=== PATIENT | male | born 1955 | race Caucasian/White ===

== ENCOUNTER 2020-07-16 15:38 | Observation (INO) | payer BC, SELFPAY ==
--- NOTE | 2020-07-12 09:50 | EKG12_ITS ---
Test Reason : PRE OP Blood Pressure : / mmHG Vent. Rate : 109 BPM Atrial Rate : 109 BPM P-R Int : 206 ms QRS Dur : 104 ms QT Int : 328 ms P-R-T Axes : 048 -09 008 degrees QTc Int : 441 ms Sinus tachycardia Inferior infarct , age undetermined Abnormal ECG Confirmed by FLORIAN GOEZT, PRISCILA ([id number]), editor managing newspaper KEVIN RAMON ([id number]) on 07/14/2020 7:57:52 AM Referred By: Luciano Montemayor Confirmed By:PRISCILA DU MD
[2020-07-12 10:42] LABS: Hematocrit 44.8 % (40-54); Hemoglobin 14.9 g/dL (13.0-16.5); Mean Corp Hgb Conc 33.3 g/dL (32-36); Mean Corpuscular Volume 84.1 fL (80-94); Mean Platelet Vol. 9.9 fl (6.2-12.0); Platelet Count 204 K/mm3 (150-450); RBC Distribution Width CV 13.6 % (11.6-14.6); RBC Distribution Width SD 41.7 fl (35.1-43.9); Red Blood Count 5.33 M/mm3 (4.6-6.2); White Blood Count 4.8 K/mm3 (4.4-11.0)
[2020-07-12 11:07] LABS: Anion Gap 4 (5-15); BUN 17 mg/dL (7-18); BUN/Creat Ratio 17.1 RATIO (10-20); Calcium,Total 9.7 mg/dL (8.5-10.1); Chloride 104 mmol/L (98-107); Creatinine, Serum 0.99 mg/dL (0.70-1.30); EST Glomerular Filtration Rate 80 mL/min (>60); Est Glom Filt Rate - Afr Amer 97 mL/min (>60); Glucose 223 mg/dL (74-106); Potassium 4.2 mmol/L (3.5-5.1); Sodium Level 136 mmol/L (136-145)
[2020-07-12 11:21] LABS: Thyroid Stim Hormone (TSH) 1.99 uIU/mL (0.358-3.74)
[2020-07-16] VITALS (27 sets, daily range): BP systolic 94–148; BP diastolic 49–94; PULSE 39–100; RESP 16–22; TEMP 36.1–36.7; O2SAT 93–99; BMI 34.4; BMI 34.5
--- NOTE | 2020-07-16 | THYROID_PTH ---
PATIENT: SHANNAN OWENS LOC: [facility] U#:[id number] AGE/SX: 65/M ROOM: [facility]07 RE07/16/[address]: Dr. Luciano Montemayor MD : [id number] BED: 1 DIS: 07/17/2020 SPEC #: [id number] RECD: 07/16/20 14:51 STATUS: ELLEN REQ #: [id number] JAZMYN: 07/16/20 00:[address]: Luciano Montemayor DEPT: SURGICAL PATHOLOGY RECD BY: Medhat Junior ENTERED: 07/19/20 06:00 SP TYPE: THYROID OTHR DR: Dr. Han Garcia DO Tissues: A - Thyroid gland, NOS B - Lymph node of neck, NOS Procedures: Decalcification bone/plaque Frozen Section (charge) Frozen Section Add'l ([facility]) Surgery Specimen Level IV Surgery Specimen Level V HEADER OPERATION: Thyroid lobectomy, frozen section PRE-OP DIAGNOSIS: Thyroid nodule, disorder of larynx TISSUE SUBMITTED: A - Right thyroid with suspicious nodule, FS at 1449, B - Lymph node right thyroid, FX at 1513 FROZEN SECTION DIAGNOSIS A. Right thyroid lobe, lobectomy: Cellular follicular nodule. B. Lymph node, biopsy: Thyroid tissue. SPENCER:vaishnavi 07/16/20 MICROSCOPIC DIAGNOSIS A. 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 Multinodular goiter B. Lymph node right thyroid: Benign thyroid tissue. SPENCER:vaishnavi 07/20/2020 COMMENT Case has been reviewed in consultation with Dr. Jacobs who concurs with the above diagnosis. IDC:AM MICROSCOPIC DESCRIPTION Slides are reviewed. GROSS DESCRIPTION A - Received fresh for frozen section diagnosis labeled with the patient's name is a specimen designated right thyroid. The specimen consists of a thyroid lobectomy specimen partially disrupted, weighing 9.6 gm and measuring 4 x 4 x 2 cm. The specimen is inked as follows: anterior - blue, posterior - black. The specimen appears to be partially disrupted exposing a nodule. The nodule is present in the middle to lower portion of the lobe measuring 3 x 2.5 x 1.5 cm. Section of the nodule reveal blanca solid cut surfaces with focal central area of fibrosis, cystic changes and calcification. Two frozen sections are done from the nodule. The entire specimen is submitted in nine cassettes as follows: 1 - frozen section, thyroid nodule, 2 - frozen section, thyroid nodule, most inferior portion of the thyroid lobe, 39??rest of the specimen (cassettes 6-9 are submitted after decalcification). B - Received fresh for frozen section diagnosis labeled with the patient's name is a specimen designated lymph node. The specimen consists of a piece of blanca-white tissue measuring 0.6 x 0.5 x 0.1 cm. The entire specimen is submitted for frozen section diagnosis in one cassette. / SJ:vaishnavi 07/16/20 TC:5 CPT: 56780, 56025, 02870 x2, 45120, 06033
[2020-07-16] MEDS: Lactated Ringers 1,000 ML 100 ML IV ×3 (12:32→19:52)
[2020-07-16 12:41] LABS: Bedside Glucose 223 mg/dL (70-110)
[2020-07-16] MEDS: Metoprolol Tartrate 25 MG Tablet PO (12:54)
[2020-07-16] MEDS: Lidocaine 1% /Epi 1:100 (20ml) 20 ML Vial (13:29)
--- NOTE | 2020-07-16 15:24 | EKG12_ITS ---
Test Reason : Blood Pressure : / mmHG Vent. Rate : 040 BPM Atrial Rate : 080 BPM P-R Int : 216 ms QRS Dur : 102 ms QT Int : 474 ms P-R-T Axes : 044 -04 109 degrees QTc Int : 386 ms Sinus rhythm with 2:1 A-V Block Inferior infarct , age undetermined Abnormal ECG Confirmed by JESUS GOETZ, MARIO ([id number]), brands editor KEVIN RAMON ([id number]) on 07/23/2020 12:59:17 PM Referred By: Luciano Montemayor Confirmed By:MARIO LEE MD
--- NOTE | 2020-07-16 15:27 | PCM.OPRPT ---
Problem List (1) Thyroid nodule Status: Acute Report of Operation Date of Procedure: 07/16/20 Pre-Operative Diagnosis: Suspicious right thyroid nodule Post-Operative Diagnosis: Same Surgery/Procedure Performed:: Right hemithyroidectomy with laryngeal nerve monitoring Description of Surgical Findings:: Gordy is a 65-year-old male who presents with a suspicious right thyroid nodule. Fine-needle biopsy had been performed at outside institution and was nondiagnostic and excision for further evaluation of possible malignancy was advised for definitive evaluation. The risks, alternatives, potential complications, and benefits were discussed at length and any questions answered to the patient and/or caregiver's satisfaction. Witnessed informed consent was obtained in the office, and the patient and/or caregiver was agreeable to proceed. Procedure went as follows: The patient was identified in the preoperative holding and brought to the operating room, placed under general anesthesia and intubated with a neuromonitoring tube. The grounding electrodes were then placed on the chest and confirmed to be operational in accordance with the hearing aid technician's directions to allow for recurrent laryngeal nerve monitoring. The neck was then prepped and draped in usual sterile fashion and the planned skin incision was marked 2 finger breadths above the sternal notch with a marking pen. The incisional line was then injected with 1% lidocaine with 100,000 epinephrine for a total of 9 mL. After allowing for vasoconstriction, a 15 blade scalpel was used to make an incision 8 cm in length through the skin and subcutaneous tissues and platysma. A subplatysmal flap was then elevated superiorly and inferiorly to allow for placement of the self-retaining thyroid retractor. The strap muscles were then divided in the midline and beginning on the left side the thyroid lobe dissected in a sub-capsular fashion. The inferior, middle, and superior thyroid vessels were individually clamped and ligated with a combination of 3-0 silk sutures and vascular clips. The parathyroid glands were identified along the inferior vascular pedicle and preserved. The recurrent laryngeal nerve was also identified and followed to its nerve entry point and the thyroid gland dissected free of its attachments to the trachea at Broyle's ligament. This was then transected at the isthmus and sent for pathologic evaluation. This revealed a cellular follicular neoplasm however malignancy was not identified. The wound bed was then irrigated saline solution and examined for sites of bleeding. No significant bleeding was encountered and a #7 flat drains were then placed into the tracheoesophageal groove and brought out through a stab incision in the neck and secured with 3-0 silk suture. The strap muscles were then re-approximated in the midline with a running 3-0 Vicryl suture followed by interrupted 3-0 Vicryl sutures to close the platysma and subcutaneous tissues. A 5-0 Monocryl was then used to close the skin followed by Steri-Strips completing the procedure. The patient was then returned to anesthesia, revived and extubated having tolerated the procedure well. Type of Anesthesia:: General Anesthesiologist: Patrick Morales Special Medications: none Specimen's removed: right thyroid lobe Drains: #7 flat PUMA drain Estimated Blood Loss (mL): 25 mL Fluids Replaced: 1000 mL Grafts/Implants Used: none - Complications none - Admit VTE Documentation VTE Present on Admission: No VTE Mechan Device Prophylaxis: SCD's VTE Pharm Prophylaxis ordered?: No
--- NOTE | 2020-07-16 15:37 | DCINST_ITS ---
- Discharge Diagnoses Current Active Problems: Current Active and Chronic Problems Thyroid nodule (Acute) You will use the following diet at home:: No restrictions Discharge Activity: Return to Normal Activity, May not drive while taking narcotic pain medications. Call your doctor if your incision/area has: Sudden Increased Bleeding, Foul Smelling Discharge, Swelling at the incision site Call your doctor if you observe: Fever of 101 or Higher, Uncontrolled pain Allergies/Adverse Reactions: Allergies No Known Allergies Allergy (Verified 07/09/20 11:47) Medications to take at Discharge Aspirin [Aspirin EC] 162 mg PO DAILY 07/09/20 Atorvastatin Calcium [Lipitor] 40 mg PO DAILY 07/09/20 Clopidogrel Bisulfate [Plavix] 75 mg PO DAILY 07/09/20 Famotidine [Pepcid] 40 mg PO DAILY 07/09/20 Losartan Potassium [Cozaar] 100 mg PO DAILY 07/09/20 Metoprolol Tartrate [Lopressor (Beta Rosaura)] 25 mg PO DAILY 07/09/20 RX: Ciprofloxacin HCl 750 mg PO BID 07/09/20 RX: Folic Acid 1 mg PO DAILY@0800 07/09/20 Primary Care Physician: Han Garcia DO [Primary Care Provider] - Test Results: Test results from this visit will be discussed in further detail at your follow- up appointment, if applicable. Please Follow Up With: Luciano Montemayor MD When: 2 weeks
--- NOTE | 2020-07-16 16:37 | SUR.PHASEI ---
1609 PT HAS C/O NAUSEA, PT PRESENTS WITH DIAPHORESIS, MOTORCYCLE TESTER NOTES SECOND DEGREE HB, RATE 40, THEN TO 39. ZOFRAN 4MG IV GIVEN, O2 3 L PER NC APPLIED. Oswaldo STABLE 116/67. 1612 DR PAYTON FRANZ CALLED . EKG ORDERED, ATROPINE 0.4MG GIVEN IN SEPERATE DOSES.BS 242. 1615 PT STATES NAUSEA IS DECREASED , MOTORCYCLE TESTER NOTES , SB 41, WITH 2ND DEGREE AV BLOCK. WILL MONITOR BP , Q5 MIN PER ANESTHESIA. 1640 DR FRANZ AT THE BESIDE, MOTORCYCLE TESTER NOTES 49, PT DENIES ANY NAUSEA.
--- NOTE | 2020-07-16 17:12 | SUR.PHASEI ---
1700 DR CROSS AT BEDSIDE, CARDIAC MONTIOR NOTES 2ND DECREEE HB RATE 55. EKG ORDERED. DR FRANZ CONTACTING HOSPITALIST.
--- NOTE | 2020-07-16 17:13 | EKG12_ITS ---
Test Reason : Blood Pressure : / mmHG Vent. Rate : 058 BPM Atrial Rate : 084 BPM P-R Int : 256 ms QRS Dur : 106 ms QT Int : 444 ms P-R-T Axes : 062 -05 101 degrees QTc Int : 435 ms Sinus rhythm with 2nd degree A-V block Mobitz-I Inferior infarct , age undetermined Abnormal ECG Confirmed by JESUS GOETZ, MARIO ([id number]), research editor JACQUELYN HDEZ ([id number]) on 07/22/2020 11:34:09 AM Referred By: Luciano Montemayor Confirmed By:MARIO LEE MD
--- NOTE | 2020-07-16 17:14 | PCM.CONS.GEN ---
Problem List (1) HTN (hypertension) Status: Chronic (2) HLD (hyperlipidemia) Status: Chronic (3) CAD (coronary artery disease) Status: Chronic (4) Mobitz II Status: Acute (5) Thyroid nodule Status: Chronic Reason for Consult Date of Consultation: 07/16/20 Reason for Consultation: Mobitz 2 postoperatively. History of Present Illness: The patient is a 65 year old M who underwent right hemithyroidectomy secondary to suspicious right thyroid nodule and subsequently developed second-degree heart block. Hospitalist and cardiology consulted. Patient evaluated in PACU. EKG consistent with second-degree block. Patient denies dizziness, lightheadedness, shortness of breath, chest pain. Resting comfortably in bed. Blood pressure stable. He denies history of arrhythmia/block. He has a cardiac history significant for CAD with multiple stents. He underwent stress test June 2020 which was negative for ischemia. He has a past medical history of CAD with history of stents, hypertension, hyperlipidemia. Past Medical History Past Medical History (Chronic Problems): Chronic Problems Thyroid nodule (Chronic) HTN (hypertension) (Chronic) HLD (hyperlipidemia) (Chronic) CAD (coronary artery disease) (Chronic) Allergies No Known Allergies Allergy (Verified 07/09/20 11:47) Home Medications: Ambulatory Orders Medication Instructions Recorded Aspirin [Aspirin EC] 162 mg PO DAILY 07/09/20 Atorvastatin Calcium [Lipitor] 40 mg PO DAILY 07/09/20 Ciprofloxacin HCl 750 mg PO BID 07/09/20 Clopidogrel Bisulfate [Plavix] 75 mg PO DAILY 07/09/20 Famotidine [Pepcid] 40 mg PO DAILY 07/09/20 Folic Acid 1 mg PO DAILY@0800 07/09/20 Losartan Potassium [Cozaar] 100 mg PO DAILY 07/09/20 Metoprolol Tartrate [Lopressor 25 mg PO DAILY 07/09/20 (Beta Rosaura)] Surgical History: - - Cardiac stents, right hemithyroidectomy Psychiatric History: No pertinent psych hx Lives: Spouse/ Significant Other Smoking Status: Never smoker Tobacco Use: Non-smoker Alcohol: None Drugs: None - *Family History Maternal History Items: - - Denies known maternal medical history including cardiac history. Paternal History Items: - - Denies known paternal medical history including cardiac history. Review of Systems Constitutional: Denies: Chills, Fever, Weight Change HEENT: Denies: Head Aches, Sinus Congestion, Sinus Drainage Cardiovascular: Denies: Chest Pain, Palpitations Respiratory: Denies: Cough, Shortness of breath at rest, Sputum production Gastrointestinal: Denies: Abdominal Pain, Nausea, Vomiting Genitourinary: Denies: Dysuria Musculoskeletal: Denies: Joint Pain, Joint Tenderness Skin: Reports: - - Postop dressing intact. Denies: Rash, Wounds Neurological: Denies: Numbness, Tingling, Focal weakness Psychiatric: Denies: Anxiety, Depression, Homicidal Ideations, Suicidal Ideations Hematologic/ Lymphatic: Denies: Easy Bruising, Easy Bleeding Patient Problems: Active and Suspected Problems Mobitz II (Acute) - Physical Exam Vitals/I&O's: Vital Signs Temp Pulse Resp BP Pulse Ox 97.5 F L 56 L 16 117/65 98 07/16/20 15:51 07/16/20 17:00 07/16/20 17:00 07/16/20 17:00 07/16/20 17:00 Oxygen Flow Rate (L/min) 3 Oxygen Delivery Method Nasal Cannula Weight: 239 lb 13.807 oz Body Mass Index (BMI) 34.4 General: Alert, Oriented x3, Cooperative HEENT: Atraumatic, PERRLA, EOMI, Normocephalic Neck: Supple, No JVD, Negative Carotid Bruits Lungs: Clear to auscultation, Normal air movement Cardiovascular: No murmurs, Bradycardic, - - 2nd degree type 1 Abdomen: Bowel Sounds Present, Soft, Non Tender, Non-Distended Extremities: No clubbing, No cyanosis, No edema, Capillary Refill Less than 3 Seconds Skin: No rashes, No breakdown Musculoskeletal: No Tenderness to Palpation of Joints or Extremities Neurological: Cranial nerves II-XII grossly intact, Neuro grossly intact Psych/Mental Status: Normal Affect, Appropriate Microbiology Past 72 Hours 07/15/20 09:25 Interface Orders SARS-CoV-2 Antigen (Rapid) - Final Laboratory Results 07/16/20 12:30: POC Glucose 223 H Current Medications Acetaminophen (Acetaminophen 500 Mg Tablet) 500 mg PO Q4H PRN PRN PRN Reason: Pain Score 1-5 Hydrocodone Bitart/Acetaminophen (Hydrocodone Bitartrate/Apap 5/325 Tablet) 1 tablet PO Q6H PRN PRN PRN Reason: Pain Score 6-10 Aspirin (Aspirin E.C. 81 Mg Tablet) 162 mg PO DAILY@0800 [facility] Atorvastatin Calcium (Atorvastatin Calcium 40 Mg Tablet) 40 mg PO DAILY@2200 [facility] Ciprofloxacin HCl (Ciprofloxacin 250 Mg Tablet) 750 mg PO BID [facility] Clopidogrel Bisulfate (Clopidogrel Bisulfate 75 Mg Tablet) 75 mg PO DAILY [facility] Famotidine (Famotidine 20 Mg Tablet) 40 mg PO DAILY [facility] Folic Acid (Folic Acid 1 Mg Tablet) 1 mg PO DAILY@0800 [facility] Lactated Ringer's () 1,000 mls @ 100 mls/hr IV .Q10H KAIN Last Admin: 07/16/20 12:32 Dose: 100 mls/hr Documented by: Losartan Potassium (Losartan Potassium 100 Mg Tablet) 100 mg PO DAILY [facility] Metoprolol Tartrate (Metoprolol Tartrate 25 Mg Tablet) 25 mg PO DAILY [facility] Ondansetron HCl (Ondansetron 4 Mg/2 Ml Vial) 4 mg IV Q4H PRN PRN PRN Reason: Nausea Assessment/Plan All Active Problems Mobitz II (Acute) 1. Second-degree AV block, occurred postoperatively-hold beta-rosaura. Appears rate is improving. Admit overnight for further monitoring. Cardiology consulted as well. 2. CAD with history of stents-recent stress test June 2020 without ischemia. Continue aspirin, statin, Plavix, metoprolol. 3. Hypertension-stable, continue losartan, Toprol. 4. Hyperlipidemia- continue statin. DVT prophylaxis- per primary service This patient was seen by SEAN Alvarez under the supervision of Dr. Haynes.
[2020-07-16 17:20] LABS: Bedside Glucose 242 mg/dL (70-110)
--- NOTE | 2020-07-16 17:27 | SUR.PHASEI ---
1720 DR PAYTON FRANZ SPOKE WITH DR KHAN, THEN DR LEE. PT TO BE ADMITTED TO ICU
--- NOTE | 2020-07-16 18:12 | ECHOD_ITS ---
Reason For Study: ARRHYTHMIA Procedure This was a 2D Doppler, Color Flow transthoracic echocardiogram. The study was technically difficult. Exam performed portable in ICU/CCU. Left Ventricle Normal LV size. Mild concentric left ventricular hypertrophy. Segmental dysfunction with preserved ejection fraction (see wall motion). The estimated ejection fraction is 55 %. Unable to assess diastolic dysfunction. Posterior-Basal: Hypokinetic. Infero-Basal: Akinetic. Mid-Posterior: Hypokinetic. Mid-Inferior: Hypokinetic. Inferior [place] : Hypokinetic. Right Ventricle Normal RV size. Normal systolic function. Atria The left atrium is mildly enlarged. Normal right atrium. No doppler evidence for ASD. Mitral Valve There is no mitral annular calcification. Mild diffuse mitral valve thickening. Trivial mitral valve insufficiency. Tricuspid Valve Normal tricuspid valve. Trivial tricuspid valve insufficiency. Right ventricular systolic pressure estimated to be 19 mmHg. Aortic Valve Trisinus/trileaflet aortic valve. Mild diffuse aortic valve thickening. Mild focal aortic valve calcification. Aortic sclerosis, no stenosis. Pulmonic Valve The pulmonic valve is not well visualized. Great Vessels Normal sized aortic root. Calcified aortic root. Pericardium/Pleural No pericardial effusion. MMode/2D Measurements & Calculations LVIDd: 5.3 cm IVSd: 1.4 cm Ao root diam: 3.9 cm LVIDs: 4.5 cm LVPWd: 1.3 cm RVDd: 4.5 cm FS: 14.9 % LAV(MOD-bp): 84.6 ml LVAd ap4: 38.5 cm2 SV(MOD-sp4): 75.4 ml LAV(MOD-bp) Indexed: 37.6 ml/m2 EDV(MOD-sp4): 149.8 ml LAV(MOD-sp2): 81.9 ml EDV(sp4-el): 149.2 ml LAV(MOD-sp4): 86.2 ml LVAs ap4: 24.3 cm2 ESV(MOD-sp4): 74.4 ml ESV(sp4-el): 75.6 ml EF(MOD-sp4): 50.3 % EF(sp4-el): 49.3 % SV(sp4-el): 73.6 ml LA A4 area: 24.7 cm2 LA dimension(2D): 4.6 cm RA A4 area: 19.2 cm2 Time Measurements MV dec time: 0.18 sec Doppler Measurements & Calculations MV E max naman: 138.8 cm/sec Ao V2 max: 138.3 cm/sec LV V1 max: 111.0 cm/sec Ao max P.7 mmHg LV V1 max P.9 mmHg PA V2 max: 98.0 cm/sec TR max naman: 202.1 cm/sec TR max P.3 mmHg ECHO/Echo Complete Interpretation Summary The study was technically difficult. Segmental dysfunction with preserved ejection fraction (see wall motion). The estimated ejection fraction is 55 %. Mild concentric left ventricular hypertrophy. The left atrium is mildly enlarged. Mild diffuse mitral valve thickening. Trivial mitral valve insufficiency. Trivial tricuspid valve insufficiency. Aortic sclerosis, no stenosis. Calcified aortic root. Right ventricular systolic pressure estimated to be 19 mmHg. Unable to assess diastolic dysfunction. Ordering Physician: Reece Nash Referring Physician: AJ LOPEZ Performed By: Kim Zimmerman, MEETA, RVT
--- NOTE | 2020-07-16 18:12 | CON.PCM_ITS ---
Problem List (1) AV block Status: Acute (2) CAD (coronary artery disease) Status: Chronic Qualifiers: Coronary Disease-Associated Artery/Lesion type: bypass graft [place] vs. transplanted heart: [place] heart Associated angina: without angina Qualified Code(s): I25.810 - Atherosclerosis of coronary artery bypass graft(s) without angina pectoris (3) S/P PTCA (percutaneous transluminal coronary angioplasty) Status: Chronic (4) S/P CABG (coronary artery bypass graft) Status: Chronic (5) Cardiomyopathy, ischemic Status: Chronic (6) HLD (hyperlipidemia) Status: Chronic (7) HTN (hypertension) Status: Chronic (8) Thyroid nodule Status: Chronic Reason for Consult Date of Consultation: 07/16/20 History of Present Illness: The patient is a 65 year [id number] white male with a history of hyperlipidemia, hypertension, CAD, status post PTCA/stent) 2002 to the RCA/PDA; 2003 to the PDA secondary to stent recoil; 2003 to the LAD; 2011 to the RCA secondary to inferior STEMI), status post CABG x4 (2011), ischemic cardiomyopathy, who now is status post thyroid surgery who is referred for evaluation of AV block with a recovery room ECG demonstrating sinus rhythm with 2-1 AV block with an inferior KS pattern of indeterminate age and a nonspecific T wave which status post IV atropine has subsequently demonstrated sinus rhythm with second-degree AV block Mobitz 1 with an inferior my pattern of indeterminate age. The patient follows with [facility] in [place], [place]. He has undergone a recent preoperative cardiovascular evaluation by his primary medical certification specialist, Dr. Mahesh Orourke with respect to his thyroid surgery. It appears he reviewed his case including a transthoracic echocardiogram from 06-24-2019. At that time per the report his LV function was reported as normal with an LVEF of 50 to 55%, the mitral valve annulus was mildly calcified, the mitral valve leaflets were mildly thickened, there was no significant stenosis/regurgitation, the aortic valve was mildly thickened, there was trivial TR and trivial ID. It appears the patient also underwent evaluation which included a breast nuclear imaging study performed on 06-29-2020. Per the report this was a pharmacologic stress nuclear imaging study. There was a moderate to large scar involving the inferior and inferolateral mckeon without significant key-infarct ischemia with an LVEF of 42% with a comment of no significant changes in perfusion compared to a prior study from 2019. The systolic function was reported as slightly better. The prior EF was reported at 37%. The patient proceeded with his thyroid surgery this day. It is reported based upon an elevated heart rate that the patient did receive during his surgical procedure esmolol 20 mg IV total. According to Dr. Morales of anesthesiology the patient did well through surgery without any significant fluctuations in his heart rate or blood pressure. In the recovery room the patient was noted to become bradycardic. An ECG was obtained. It appeared he had sinus rhythm with a 2-1 AV block pattern. The patient was treated with IV atropine and had precautionary external transcutaneous pacemaker pads placed but not activated. The patient's blood pressure remained stable. The patient was reported without any acute symptoms. A follow-up ECG subsequently demonstrated sinus rhythm with the appearance of second-degree AV block Mobitz 1. At the present time the patient appears to be resting supine. He denies any ongoing chest discomfort or difficulty breathing. He has not sensed any obvious change in his underlying rate or rhythm. He has had no history of near syncope or syncope. To the best of his knowledge she has never had to undergo any evaluation of his cardiac rate or rhythm in the past. [] Past Medical History Allergies/Adverse Reactions: Allergies No Known Allergies Allergy (Verified 07/09/20 11:47) Home Medications: Ambulatory Orders Medication Instructions Recorded Aspirin [Aspirin EC] 162 mg PO DAILY 07/09/20 Atorvastatin Calcium [Lipitor] 40 mg PO DAILY 07/09/20 Ciprofloxacin HCl 750 mg PO BID 07/09/20 Clopidogrel Bisulfate [Plavix] 75 mg PO DAILY 07/09/20 Famotidine [Pepcid] 40 mg PO DAILY 07/09/20 Folic Acid 1 mg PO DAILY@0800 07/09/20 Losartan Potassium [Cozaar] 100 mg PO DAILY 07/09/20 Metoprolol Tartrate [Lopressor 25 mg PO DAILY 07/09/20 (Beta Mike)] Past Medical History (Chronic Problems): Chronic Problems Thyroid nodule (Chronic) HTN (hypertension) (Chronic) HLD (hyperlipidemia) (Chronic) CAD (coronary artery disease) (Chronic) S/P PTCA (percutaneous transluminal coronary angioplasty) (Chronic) S/P CABG (coronary artery bypass graft) (Chronic) Cardiomyopathy, ischemic (Chronic) Surgical History: - - Cardiac stents, right hemithyroidectomy Psychiatric History: No pertinent psych hx - *Family History Maternal History Items: - - Denies known maternal medical history including cardiac history. Paternal History Items: - - Denies known paternal medical history including cardiac history. Lives: Spouse/ Significant Other Smoking Status: Never smoker Tobacco Use: Non-smoker Alcohol: None Drugs: None Review of Systems - Review of Systems General: Denies: Fever, Night Sweats, Fatigue Cardiovascular: Denies: Chest Discomfort, Shortness of Breath, Orthopnea, PND, Peripheral Edema, Palpitations, Lightheadedness, Dizziness, Near Syncope, Sy ncope Respiratory: Denies: Cough, Sputum Production, Hemoptysis Gastrointestinal: Denies: Hematemesis, Hematochezia, Melena Genitourinary: Denies: Dysuria, Hematuria Subjectve: This is a 65-year-old white male who appears to be resting comfortably at the moment in no acute distress. Objective: Vital Signs Temp Pulse Resp BP Pulse Ox 97.5 F L 65 16 126/89 H 99 07/16/20 15:51 07/16/20 18:00 07/16/20 18:00 07/16/20 18:00 07/16/20 18:00 Oxygen Flow Rate (L/min) 2 Oxygen Delivery Method Nasal Cannula Weight: 239 lb 13.807 oz Body Mass Index (BMI) 34.4 General: Awake, Alert, Oriented x 3, Cooperative, No Acute Distress, Obese HEENT: Atraumatic, Normocephalic, PERRL, EOMI, Sclera Non Icteric Neck: Supple, Good ROM, No JVD Lungs: Clear to auscultation Cardiovascular: Irregular Rhythm, Normal S1, Normal S2 Abdomen: Bowel Sounds Present, Soft Extremities: No edema Neurological: No Focal Motor or Sensory Deficit Psych/Mental Status: Appropriate Rhythm: Sinus rhythm; second-degree AV block Mobitz 1 EKG: As noted above ECHO: As noted above Stress Test: As noted above Assessment/Plan 1. AV block The patient has experienced post surgery in the recovery room findings com patible with underlying AV block initially with a sinus rhythm with a 2-1 AV block and subsequently, status post receiving IV atropine, a sinus rhythm with a second-degree AV block Mobitz 1. The patient has no history of cardiac conduction disorder that he is aware of. He does not recall undergoing any type of cardiac rhythm evaluation in the past. The patient does have an extensive history of underlying CAD requiring multiple PCI procedures and subsequently CABG. He also has findings of an underlying ischemic mediated cardiomyopathy but has not had overt CHF or pulmonary edema. The patient has been on medical therapy in the past with beta-mike therapy with metoprolol XL at 25 mg p.o. daily. At the moment the patient appears to be symptomatically and hemodynamically stable. He is going to be placed in the ICU to be monitored for any other concerning cardiac dysrhythmias/conduction related issues that would require additional evaluation and care. During this time his beta-mike will be placed on hold. Additional rate limiting medication should be avoided. Depending upon his clinical course he may or may not need additional ongoing evaluation of his underlying rate and rhythm. 2. CAD status post PCI status post CABG As noted above the patient has an extensive history of coronary artery disease requiring multiple PCI procedures and subsequently a CABG. He has undergone recent presurgical evaluation with a pharmacologic stress nuclear imaging study with the findings as noted above. He did not require additional evaluation with diagnostic cardiac catheterization. At the moment he appears without any acute coronary syndrome symptoms. He will continue to be monitored. He will continue medical therapy with the exception of his rate limiting therapy at this time. 3. Ischemic mediated cardiomyopathy He does have a history of an ischemic mediated cardiomyopathy. He does not have any obvious symptoms of overt CHF or pulmonary edema. He has not required primary ICD placement. At the present time he will continue medical therapy with the exception of his rate limiting agents. His overall LV wall motion systolic function can be reassessed with an echocardiogram to look for any obvious new changes based upon his event that would indicate the need for additional evaluation and/or care. 4. Hyperlipidemia He will continue medical management as deemed appropriate. 5. Hypertension He can continue medical therapy with the avoidance of rate limiting medication at this time. 6. Status post thyroid surgery He will continue evaluation care per Dr. Montemayor of ENT. Comment: The patient's case has been discussed and reviewed with Dr. Morales and Dr. Haynes. This note was generated using a voice recognition system and there may be incorrect words, spelling or punctuation that were not noted when reviewing the office note prior to saving. Procedure Criteria Procedure Type: Elective COVID Risk Discussion: The surgeon/proceduralist and patient have discussed in detail the risk of exposure to and/or potential harm posed by the COVID-19 virus with having a surgery/procedure at this time versus the risk of delaying the surgery/procedure. It is not possible to know either the risk of delaying the surgery or procedure or chance of getting an infection with perfect accuracy, but a joint decision was made between the patient and the surgeon/proceduralist to proceed at this time with the scheduled surgery/procedure as indicated on the consent form.
[2020-07-16 20:28] LABS: Magnesium 2.1 mg/dL (1.6-2.6)
[2020-07-16] MEDS: HYDROcodone Bitartrate/Apap 5/325 Tablet PO (20:46)
[2020-07-16] MEDS: Ciprofloxacin 250 MG Tablet 750 MG PO (21:34)
[2020-07-16] MEDS: Acetaminophen 500 MG Tablet PO (22:56)
[2020-07-17] VITALS (17 sets, daily range): BP systolic 98–119; BP diastolic 52–83; PULSE 59–96; RESP 16–21; TEMP 36.2–36.6; O2SAT 92–98
[2020-07-17 02:40] LABS: Hemoglobin A1c 8.6 % (3.8-5.6)
[2020-07-17] MEDS: HYDROcodone Bitartrate/Apap 5/325 Tablet PO ×2 (02:43→11:47)
[2020-07-17] MEDS: Acetaminophen 500 MG Tablet PO (05:07)
[2020-07-17] MEDS: Lactated Ringers 1,000 ML 100 ML IV (05:30)
--- NOTE | 2020-07-17 05:55 | EKG12_ITS ---
Test Reason : AM EKG Blood Pressure : / mmHG Vent. Rate : 067 BPM Atrial Rate : 096 BPM P-R Int : 000 ms QRS Dur : 108 ms QT Int : 434 ms P-R-T Axes : 059 -01 053 degrees QTc Int : 458 ms Sinus rhythm with 2nd degree A-V block (Mobitz I) Inferior infarct , age undetermined Abnormal ECG Confirmed by JESUS GOETZ, MARIO ([id number]), tape editor JACQUELYN HDEZ ([id number]) on 07/22/2020 11:29:37 AM Referred By: Luciano Montemayor Confirmed By:MARIO LEE MD
--- NOTE | 2020-07-17 07:51 | PCM.PN.HOSP ---
Patient Problems: Active and Suspected Problems Mobitz II (Acute) AV block (Acute) Vitals/I&O's: Vital Signs Temp Pulse Resp BP Pulse Ox 97.8 F 72 18 113/66 93 07/17/20 04:00 07/17/20 06:00 07/17/20 06:00 07/17/20 06:00 07/17/20 06:00 Oxygen Flow Rate (L/min) 2 Oxygen Delivery Method Room Air Weight: 238 lb 8.642 oz Body Mass Index (BMI) 34.4 Intake and Output for Last 24 Hours 07/15/20 07/16/20 07/17/20 23:59 23:59 23:59 Intake Total 1583.33 / 1703.33 1323.33 / 1323.33 Output Total 500 / 960 1165 / 1165 Balance 1083.33 / 743.33 158.33 / 158.33 Microbiology Past 72 Hours 07/15/20 09:25 Interface Orders SARS-CoV-2 Antigen (Rapid) - Final Laboratory Results 07/16/20 12:30: POC Glucose 223 H 07/16/20 16:19: POC Glucose 242 H 07/16/20 19:50: Magnesium 2.1, Troponin I < 0.015 07/16/20 23:20: Troponin I < 0.015 07/17/20 02:15: Hemoglobin A1c 8.6 H 07/17/20 02:15: Troponin I < 0.015 Current Medications Acetaminophen (Acetaminophen 500 Mg Tablet) 500 mg PO Q4H PRN PRN PRN Reason: Pain Score 1-5 Last Admin: 07/17/20 05:07 Dose: 500 mg Documented by: Hydrocodone Bitart/Acetaminophen (Hydrocodone Bitartrate/Apap 5/325 Tablet) 1 tablet PO Q6H PRN PRN PRN Reason: Pain Score 6-10 Last Admin: 07/17/20 02:43 Dose: 1 tablet Documented by: Albuterol Sulfate (Albuterol 2.5 Mg/3 Ml Vial.Neb.) 2.5 mg INHALATION Q2H PRN PRN PRN Reason: Dyspnea, wheezing Aspirin (Aspirin E.C. 81 Mg Tablet) 162 mg PO DAILY@0800 COUNT [facility]CLUDES THE [facility] Atorvastatin Calcium (Atorvastatin Calcium 40 Mg Tablet) 40 mg PO DAILY@2200 COUNT INCLUDES THE [facility] Ciprofloxacin HCl (Ciprofloxacin 250 Mg Tablet) 750 mg PO BID COUNT INCLUDES THE [facility] Last Admin: 07/16/20 21:34 Dose: 750 mg Documented by: Clopidogrel Bisulfate (Clopidogrel Bisulfate 75 Mg Tablet) 75 mg PO DAILY COUNT INCLUDES THE [facility] Famotidine (Famotidine 20 Mg Tablet) 40 mg PO DAILY COUNT INCLUDES THE [facility] Folic Acid (Folic Acid 1 Mg Tablet) 1 mg PO DAILY@0800 COUNT INCLUDES THE [facility] Hydralazine HCl (Hydralazine 20 Mg/Ml Vial) 10 mg IV Q4H PRN PRN PRN Reason: SBP > 160 Lactated Ringer's () 1,000 mls @ 100 mls/hr IV .Q10H COUNT INCLUDES THE [facility] Last Admin: 07/17/20 05:30 Dose: 100 mls/hr Documented by: Losartan Potassium (Losartan Potassium 100 Mg Tablet) 100 mg PO DAILY COUNT INCLUDES THE [facility] Ondansetron HCl (Ondansetron 4 Mg/2 Ml Vial) 4 mg IV Q4H PRN PRN PRN Reason: Nausea Sodium Chloride (0.9% Saline Lock 10 Ml Syringe) 10 - 40 ml IV UD PRN PRN Reason: SALINE FLUSH STROKE Vital Signs/Narrative: Vital Signs Temp Pulse Resp BP Pulse Ox 07/17/20 06:00 72 18 113/66 93 07/17/20 05:00 67 18 119/83 H 95 07/17/20 04:00 97.8 F 66 16 114/56 L 92 Medical Necessity - Tobacco Use Smoking Status: Never smoker Tobacco Use: Non-smoker Assessment/Plan All Active Problems Mobitz II (Acute) AV block (Acute)
[2020-07-17] MEDS: Aspirin E.C. 81 MG Tablet 162 MG PO (08:34)
[2020-07-17] MEDS: Folic Acid 1 MG Tablet PO (08:35)
[2020-07-17] MEDS: Ciprofloxacin 250 MG Tablet 750 MG PO (08:35)
[2020-07-17] MEDS: Famotidine 20 MG Tablet 40 MG PO (08:36)
[2020-07-17] MEDS: Losartan Potassium 100 MG Tablet PO (08:36)
[2020-07-17] MEDS: Clopidogrel Bisulfate 75 MG Tablet PO (08:37)
[2020-07-17 09:03] LABS: Absolute Lymphocyte Count 0.77 X10^3/uL (0.83-4.51); Absolute Neutrophil Count 9.4 X10^3/uL (2.0-7.7); Basophil# 0.01 X10^3/uL; Basophil% 0.1 % (0-1); Hematocrit 42.3 % (40-54); Hemoglobin 13.8 g/dL (13.0-16.5); Lymphocyte # 0.77 X10^3/ul (4.0); Lymphocyte % 7.2 % (19-41); Mean Corp Hgb Conc 32.6 g/dL (32-36); Mean Corpuscular Hgb 27.4 pg (27.0-32.0); Mean Corpuscular Volume 83.9 fL (80-94); Mean Platelet Vol. 10.1 fl (6.2-12.0); Monocyte# 0.48 X10^3/uL; Monocyte% 4.5 % (0-10); NRBC Flagged by Analyzer 0 % (0-5); Neutrophil # 9.36 X10^3/uL (2.7-7.7); Neutrophil % 87.8 % (47-70); Platelet Count 193 K/mm3 (150-450); RBC Distribution Width CV 13.3 % (11.6-14.6); RBC Distribution Width SD 40.9 fl (35.1-43.9); Red Blood Count 5.04 M/mm3 (4.6-6.2); White Blood Count 10.7 K/mm3 (4.4-11.0)
[2020-07-17 09:14] LABS: Anion Gap 6 (5-15); BUN 21 mg/dL (7-18); Calcium,Total 9.2 mg/dL (8.5-10.1); Chloride 101 mmol/L (98-107); Creatinine, Serum 1.05 mg/dL (0.70-1.30); EST Glomerular Filtration Rate 76 mL/min (>60); Est Glom Filt Rate - Afr Amer 91 mL/min (>60); Estimated Creatinine Clearance 73.39 ml/min; Glucose 263 mg/dL (74-106); Magnesium 2.1 mg/dL (1.6-2.6); Phosphorus 3.3 mg/dL (2.5-4.9); Potassium 4.1 mmol/L (3.5-5.1); Sodium Level 135 mmol/L (136-145)
--- NOTE | 2020-07-17 09:30 | NURSING ---
benjy drain removed per Dr Banerjee
--- NOTE | 2020-07-17 09:31 | PCM.DC.SUM ---
Discharge Date and Diagnosis - Problem List Patient Problems: Active and Suspected Problems Mobitz II (Acute) AV block (Acute) Date of Admission: 07/16/20 Date of Discharge: 07/17/20 - Primary Discharge Diagnosis Acute Problems: Active Problems Mobitz II (Acute) AV block (Acute) - Secondary Discharge Diagnosis Chronic Problems: Chronic Problems Thyroid nodule (Chronic) HTN (hypertension) (Chronic) HLD (hyperlipidemia) (Chronic) CAD (coronary artery disease) (Chronic) S/P PTCA (percutaneous transluminal coronary angioplasty) (Chronic) S/P CABG (coronary artery bypass graft) (Chronic) Cardiomyopathy, ischemic (Chronic) Hospital Course and Treatment cardiology, hospitalist Operations: - - right hemithyroidectomy Procedures: EKG Summary of Care Provided: The patient is a 65 year old M who presented for right hemithyroidectomy for suspicious neoplasm. His surgery was uneventful however upon recovery from anesthesia he was noted to develop bradycardia. He denies any chest pain and further evaluation by the hospitalist and cardiology was requested. Over the course of his recovery he denied any chest pain, shortness of breath, or other change from his usual status and his rhythm scattered in a first-degree AV block. His postoperative course was otherwise uneventful. At time of his evaluation today we are waiting final evaluation by cardiology but anticipate discharge today with follow-up with his established athletic agent. His drain is removed at the bedside and he shows normal voicing and intact neck reviewed suggesting an otherwise uneventful surgery other than his cardiac course. [] Patient Problems: Active and Suspected Problems Mobitz II (Acute) AV block (Acute) Subjective: Patient reports that he has had no significant pain overnight other than some mild throat discomfort. He denies any chest pain, shortness of breath, wheezing, shortness of breath, or hoarseness. Objective: Patient is well-appearing at the bedside with normal voicing. His neck incision site is clean dry and intact. Drain output is minimal and this was removed at the bedside. He continues with an irregular heartbeat consistent with first-degree block. - Physical Exam Vitals/I&O's: Vital Signs Temp Pulse Resp BP Pulse Ox 97.8 F 72 18 113/66 96 07/17/20 04:00 07/17/20 06:00 07/17/20 06:00 07/17/20 06:00 07/17/20 08:05 Oxygen Flow Rate (L/min) 2 Oxygen Delivery Method Room Air Weight: 108.2 kg Body Mass Index (BMI) 34.4 Intake and Output for Last 24 Hours 07/15/20 07/16/20 07/17/20 23:59 23:59 23:59 Intake Total 1583.33 / 1703.33 1323.33 / 1323.33 Output Total 500 / 960 1165 / 1165 Balance 1083.33 / 743.33 158.33 / 158.33 General: Alert, Oriented x3, Well developed HEENT: Atraumatic, PERRLA Oral: Moist Mucosa Neck: Supple Lungs: Normal air movement, No rhonchi, No wheeze Cardiovascular: Irregular Rate Abdomen: Soft, Non Tender, Non-Distended Extremities: No clubbing, No cyanosis, No edema Skin: No rashes, No breakdown Neurological: Cranial nerves II-XII grossly intact Psych/Mental Status: Normal Affect, Alert and oriented to time, place, person, mood and affect Microbiology Past 72 Hours 07/15/20 09:25 Interface Orders SARS-CoV-2 Antigen (Rapid) - Final Laboratory Results 07/16/20 12:30: POC Glucose 223 H 07/16/20 16:19: POC Glucose 242 H 07/16/20 19:50: Magnesium 2.1, Troponin I < 0.015 07/16/20 23:20: Troponin I < 0.015 07/17/20 02:15: Hemoglobin A1c 8.6 H 07/17/20 02:15: Troponin I < 0.015 07/17/20 08:50: WBC 10.7, RBC 5.04, Hgb 13.8, Hct 42.3, MCV 83.9, MCH 27.4, MCHC 32.6, RDW Std Deviation 40.9, RDW Coeff of [place] 13.3, Plt Count 193, MPV 10.1, Immature Gran % (Auto) 0.400, Neut % (Auto) 87.8 H, Lymph % (Auto) 7.2 L, [place] % (Auto) 4.5, Eos % (Auto) 0.0, Baso % (Auto) 0.1, Absolute Neuts (auto) 9.4 H, Absolute Lymphs (auto) 0.77 L, Nucleated RBC % 0 07/17/20 08:50: Sodium 135 L, Potassium 4.1, Chloride 101, Carbon Dioxide 28.0, Anion Gap 6, BUN 21 H, Creatinine 1.05, Estim Creat Clear Calc 73.39, Est GFR (MDRD) Af Amer 91, Est GFR (MDRD) Non-Af 76, BUN/Creatinine Ratio 20.0, Glucose 263 H, Calcium 9.2, Phosphorus 3.3, Magnesium 2.1 Current Medications Acetaminophen (Acetaminophen 500 Mg Tablet) 500 mg PO Q4H PRN PRN PRN Reason: Pain Score 1-5 Last Admin: 07/17/20 05:07 Dose: 500 mg Documented by: Hydrocodone Bitart/Acetaminophen (Hydrocodone Bitartrate/Apap 5/325 Tablet) 1 tablet PO Q6H PRN PRN PRN Reason: Pain Score 6-10 Last Admin: 07/17/20 02:43 Dose: 1 tablet Documented by: Albuterol Sulfate (Albuterol 2.5 Mg/3 Ml Vial.Neb.) 2.5 mg INHALATION Q2H PRN PRN PRN Reason: Dyspnea, wheezing Aspirin (Aspirin E.C. 81 Mg Tablet) 162 mg PO DAILY@0800 [facility] Last Admin: 07/17/20 08:34 Dose: 162 mg Documented by: Atorvastatin Calcium (Atorvastatin Calcium 40 Mg Tablet) 40 mg PO DAILY@2200 [facility] Ciprofloxacin HCl (Ciprofloxacin 250 Mg Tablet) 750 mg PO BID [facility] Last Admin: 07/17/20 08:35 Dose: 750 mg Documented by: Clopidogrel Bisulfate (Clopidogrel Bisulfate 75 Mg Tablet) 75 mg PO DAILY [facility] Last Admin: 07/17/20 08:37 Dose: 75 mg Documented by: Famotidine (Famotidine 20 Mg Tablet) 40 mg PO DAILY [facility] Last Admin: 07/17/20 08:36 Dose: 40 mg Documented by: Folic Acid (Folic Acid 1 Mg Tablet) 1 mg PO DAILY@0800 [facility] Last Admin: 07/17/20 08:35 Dose: 1 mg Documented by: Hydralazine HCl (Hydralazine 20 Mg/Ml Vial) 10 mg IV Q4H PRN PRN PRN Reason: SBP > 160 Lactated Ringer's () 1,000 mls @ 100 mls/hr IV .Q10H [facility] Last Admin: 07/17/20 05:30 Dose: 100 mls/hr Documented by: Losartan Potassium (Losartan Potassium 100 Mg Tablet) 100 mg PO DAILY [facility] Last Admin: 07/17/20 08:36 Dose: 100 mg Documented by: Ondansetron HCl (Ondansetron 4 Mg/2 Ml Vial) 4 mg IV Q4H PRN PRN PRN Reason: Nausea Sodium Chloride (0.9% Saline Lock 10 Ml Syringe) 10 - 40 ml IV UD PRN PRN Reason: SALINE FLUSH Discharge Activity: Return to Normal Activity, May not drive while taking narcotic pain medications. Call your doctor if your incision/area has: Sudden Increased Bleeding, Foul Smelling Discharge, Swelling at the incision site Call your doctor if you observe: Fever of 101 or Higher, Uncontrolled pain Home Medications: Medications to take at Discharge Aspirin [Aspirin EC] 162 mg PO DAILY 07/09/20 Atorvastatin Calcium [Lipitor] 40 mg PO DAILY 07/09/20 Ciprofloxacin HCl 750 mg PO BID 07/09/20 Clopidogrel Bisulfate [Plavix] 75 mg PO DAILY 07/09/20 Famotidine [Pepcid] 40 mg PO DAILY 07/09/20 Folic Acid 1 mg PO DAILY@0800 07/09/20 Losartan Potassium [Cozaar] 100 mg PO DAILY 07/09/20 Metoprolol Tartrate [Lopressor (Beta Rosaura)] 25 mg PO DAILY 07/09/20 Primary Care Physician: Han Garcia DO [Primary Care Provider] - Please Follow Up With: Luciano Montemayor MD When: 2 weeks Please Follow Up With: Facundo - athletic agent When: 1 week Medical Necessity - Tobacco Use Smoking Status: Never smoker Tobacco Use: Non-smoker Meaningful Use Info Meaningful Use Diagnoses (Choose all that apply): None applicable
--- NOTE | 2020-07-17 09:49 | PN_ITS ---
<Tegan Kendall DRILL DOCTOR - Last Filed: 07/17/20 09:55> Patient Problems: Active and Suspected Problems Mobitz II (Acute) AV block (Acute) Subjective: Patient seen and examined. Rate stable. Denies symptoms. Metoprolol on hold. - Physical Exam Vitals/I&O's: Vital Signs Temp Pulse Resp BP Pulse Ox 97.8 F 72 18 113/66 96 07/17/20 04:00 07/17/20 06:00 07/17/20 06:00 07/17/20 06:00 07/17/20 08:05 Oxygen Flow Rate (L/min) 2 Oxygen Delivery Method Room Air Weight: 238 lb 8.642 oz Body Mass Index (BMI) 34.4 Intake and Output for Last 24 Hours 07/15/20 07/16/20 07/17/20 23:59 23:59 23:59 Intake Total 1583.33 / 1703.33 1323.33 / 1323.33 Output Total 500 / 960 1165 / 1165 Balance 1083.33 / 743.33 158.33 / 158.33 General: Alert, Oriented x3, Cooperative HEENT: Atraumatic, PERRLA, EOMI, Normocephalic Neck: Supple, No JVD, Negative Carotid Bruits Lungs: Clear to auscultation, Normal air movement Cardiovascular: No murmurs, Bradycardic, - - Mobitz 1 Abdomen: Bowel Sounds Present, Soft, Non Tender, Non-Distended Extremities: No clubbing, No cyanosis, No edema, Capillary Refill Less than 3 Seconds Skin: No rashes, No breakdown, - - Postop dressing intact Musculoskeletal: No Tenderness to Palpation of Joints or Extremities Neurological: Cranial nerves II-XII grossly intact, Neuro grossly intact Psych/Mental Status: Normal Affect, Appropriate Microbiology Past 72 Hours 07/15/20 09:25 Interface Orders SARS-CoV-2 Antigen (Rapid) - Final Laboratory Results 07/16/20 12:30: POC Glucose 223 H 07/16/20 16:19: POC Glucose 242 H 07/16/20 19:50: Magnesium 2.1, Troponin I < 0.015 07/16/20 23:20: Troponin I < 0.015 07/17/20 02:15: Hemoglobin A1c 8.6 H 07/17/20 02:15: Troponin I < 0.015 07/17/20 08:50: WBC 10.7, RBC 5.04, Hgb 13.8, Hct 42.3, MCV 83.9, MCH 27.4, MCHC 32.6, RDW Std Deviation 40.9, RDW Coeff of Nj 13.3, Plt Count 193, MPV 10.1, Immature Gran % (Auto) 0.400, Neut % (Auto) 87.8 H, Lymph % (Auto) 7.2 L, [place] % (Auto) 4.5, Eos % (Auto) 0.0, Baso % (Auto) 0.1, Absolute Neuts (auto) 9.4 H, Absolute Lymphs (auto) 0.77 L, Nucleated RBC % 0 07/17/20 08:50: Sodium 135 L, Potassium 4.1, Chloride 101, Carbon Dioxide 28.0, Anion Gap 6, BUN 21 H, Creatinine 1.05, Estim Creat Clear Calc 73.39, Est GFR (MDRD) Af Amer 91, Est GFR (MDRD) Non-Af 76, BUN/Creatinine Ratio 20.0, Glucose 263 H, Calcium 9.2, Phosphorus 3.3, Magnesium 2.1 Current Medications Acetaminophen (Acetaminophen 500 Mg Tablet) 500 mg PO Q4H PRN PRN PRN Reason: Pain Score 1-5 Last Admin: 07/17/20 05:07 Dose: 500 mg Documented by: Hydrocodone Bitart/Acetaminophen (Hydrocodone Bitartrate/Apap 5/325 Tablet) 1 tablet PO Q6H PRN PRN PRN Reason: Pain Score 6-10 Last Admin: 07/17/20 02:43 Dose: 1 tablet Documented by: Albuterol Sulfate (Albuterol 2.5 Mg/3 Ml Vial.Neb.) 2.5 mg INHALATION Q2H PRN PRN PRN Reason: Dyspnea, wheezing Aspirin (Aspirin E.C. 81 Mg Tablet) 162 mg PO DAILY@0800 [facility] Last Admin: 07/17/20 08:34 Dose: 162 mg Documented by: Atorvastatin Calcium (Atorvastatin Calcium 40 Mg Tablet) 40 mg PO DAILY@2200 [facility] Ciprofloxacin HCl (Ciprofloxacin 250 Mg Tablet) 750 mg PO BID [facility] Last Admin: 07/17/20 08:35 Dose: 750 mg Documented by: Clopidogrel Bisulfate (Clopidogrel Bisulfate 75 Mg Tablet) 75 mg PO DAILY [facility] Last Admin: 07/17/20 08:37 Dose: 75 mg Documented by: Famotidine (Famotidine 20 Mg Tablet) 40 mg PO DAILY [facility] Last Admin: 07/17/20 08:36 Dose: 40 mg Documented by: Folic Acid (Folic Acid 1 Mg Tablet) 1 mg PO DAILY@0800 [facility] Last Admin: 07/17/20 08:35 Dose: 1 mg Documented by: Hydralazine HCl (Hydralazine 20 Mg/Ml Vial) 10 mg IV Q4H PRN PRN PRN Reason: SBP > 160 Lactated Ringer's () 1,000 mls @ 100 mls/hr IV .Q10H [facility] Last Admin: 07/17/20 05:30 Dose: 100 mls/hr Documented by: Losartan Potassium (Losartan Potassium 100 Mg Tablet) 100 mg PO DAILY [facility] Last Admin: 07/17/20 08:36 Dose: 100 mg Documented by: Ondansetron HCl (Ondansetron 4 Mg/2 Ml Vial) 4 mg IV Q4H PRN PRN PRN Reason: Nausea Sodium Chloride (0.9% Saline Lock 10 Ml Syringe) 10 - 40 ml IV UD PRN PRN Reason: SALINE FLUSH Medical Necessity - Tobacco Use Smoking Status: Never smoker Tobacco Use: Non-smoker Assessment/Plan All Active Problems Mobitz II (Acute) AV block (Acute) 1. Second-degree AV block, occurred postoperatively-beta mike on hold. Rate stable. Cardiology following. Anticipate dc later today pending cardiology clearance. Follow with primary warrant clerk in one week, follow with Dr. Orourke. 2. CAD with history of stents/CABG-recent stress test June 2020 without ischemia. Continue aspirin, statin, Plavix, metoprolol. 3. Hypertension-stable, continue losartan, Toprol. 4. Hyperlipidemia- continue statin. 5. Right hemithyroidectomy secondary to suspicious right thyroid nodule- pathology pending. Outpatient follow-up with Dr. Montemayor. DVT prophylaxis- per primary service This patient was seen by SEAN Alvarez under the supervision of Dr. Vance. <David Vance - Last Filed: 07/17/20 14:46> Objective: athletic monitor reviewed. Yesterday in train gate attendant today, patient had Mobitz type II, second-degree AV block. Rhythm got better and currently having first-degree AV block and at one time Wenckebach Mobitz type 1 in the morning. Overall, patient does not have symptoms of dizziness, nausea, vomiting, headache, hypotension, chest pain/pressure or altered mental status; signs of hemodynamic instability Denies history of abnormal heart rate and rhythm in the past. He has coronary artery disease status post CABG and stents in the past. Follows Dr. [facility] Physical exam General: Alert, Oriented x3, Cooperative HEENT: Atraumatic, PERRLA, EOMI, Normocephalic Oral: No Gingival or Mucosal Lesions/ Ulcerations Neck: Thyroid surgery scar, horizontal. Small PUMA drain with serosanguineous collection. Lungs: Air entry diminished in bilateral lung bases. No crepitation/rhonchi Cardiovascular: Sinus bradycardia with first-degree AV block, sometimes Wenckebach type I, Normal S1, Normal S2, No murmurs Abdomen: Bowel Sounds Present, Soft, Non Tender, Non-Distended : No renal angle tenderness. No suprapubic tenderness. Extremities: No edema, Capillary Refill Less than 3 Seconds Skin: No rashes, No breakdown Musculoskeletal: No Tenderness to Palpation of Joints or Extremities Neurological: Cranial nerves II-XII grossly intact, Deep Tendon Reflexes 2+/4 and Symmetrical, Neuro grossly intact Psych/Mental Status: Normal Affect, Appropriate. - Physical Exam Vitals/I&O's: Vital Signs Temp Pulse Resp BP Pulse Ox 97.8 F 73 16 108/63 96 07/17/20 12:00 07/17/20 12:00 07/17/20 12:00 07/17/20 12:00 07/17/20 12:00 Oxygen Flow Rate (L/min) 2 Oxygen Delivery Method Room Air Weight: 238 lb 8.642 oz Body Mass Index (BMI) 34.4 Intake and Output for Last 24 Hours 07/15/20 07/16/20 07/17/20 23:59 23:59 23:59 Intake Total 1583.33 / 1703.33 1623.33 / 1623.33 Output Total 500 / 960 1167 / 1167 Balance 1083.33 / 743.33 456.33 / 456.33 Microbiology Past 72 Hours 07/15/20 09:25 Interface Orders SARS-CoV-2 Antigen (Rapid) - Final Laboratory Results 07/16/20 16:19: POC Glucose 242 H 07/16/20 19:50: Magnesium 2.1, Troponin I < 0.015 07/16/20 23:20: Troponin I < 0.015 07/17/20 02:15: Hemoglobin A1c 8.6 H 07/17/20 02:15: Troponin I < 0.015 07/17/20 08:50: WBC 10.7, RBC 5.04, Hgb 13.8, Hct 42.3, MCV 83.9, MCH 27.4, MCHC 32.6, RDW Std Deviation 40.9, RDW Coeff of Nj 13.3, Plt Count 193, MPV 10.1, Immature Gran % (Auto) 0.400, Neut % (Auto) 87.8 H, Lymph % (Auto) 7.2 L, [place] % (Auto) 4.5, Eos % (Auto) 0.0, Baso % (Auto) 0.1, Absolute Neuts (auto) 9.4 H, Absolute Lymphs (auto) 0.77 L, Nucleated RBC % 0 07/17/20 08:50: Sodium 135 L, Potassium 4.1, Chloride 101, Carbon Dioxide 28.0, Anion Gap 6, BUN 21 H, Creatinine 1.05, Estim Creat Clear Calc 73.39, Est GFR (MDRD) Af Amer 91, Est GFR (MDRD) Non-Af 76, BUN/Creatinine Ratio 20.0, Glucose 263 H, Calcium 9.2, Phosphorus 3.3, Magnesium 2.1 Current Medications Acetaminophen (Acetaminophen 500 Mg Tablet) 500 mg PO Q4H PRN PRN PRN Reason: Pain Score 1-5 Last Admin: 07/17/20 05:07 Dose: 500 mg Documented by: Hydrocodone Bitart/Acetaminophen (Hydrocodone Bitartrate/Apap 5/325 Tablet) 1 tablet PO Q6H PRN PRN PRN Reason: Pain Score 6-10 Last Admin: 07/17/20 11:47 Dose: 1 tablet Documented by: Albuterol Sulfate (Albuterol 2.5 Mg/3 Ml Vial.Neb.) 2.5 mg INHALATION Q2H PRN PRN PRN Reason: Dyspnea, wheezing Aspirin (Aspirin E.C. 81 Mg Tablet) 162 mg PO DAILY@0800 [facility] Last Admin: 07/17/20 08:34 Dose: 162 mg Documented by: Atorvastatin Calcium (Atorvastatin Calcium 40 Mg Tablet) 40 mg PO DAILY@2200 [facility] Ciprofloxacin HCl (Ciprofloxacin 250 Mg Tablet) 750 mg PO BID [facility] Last Admin: 07/17/20 08:35 Dose: 750 mg Documented by: Clopidogrel Bisulfate (Clopidogrel Bisulfate 75 Mg Tablet) 75 mg PO DAILY [facility] Last Admin: 07/17/20 08:37 Dose: 75 mg Documented by: Famotidine (Famotidine 20 Mg Tablet) 40 mg PO DAILY [facility] Last Admin: 07/17/20 08:36 Dose: 40 mg Documented by: Folic Acid (Folic Acid 1 Mg Tablet) 1 mg PO DAILY@0800 [facility] Last Admin: 07/17/20 08:35 Dose: 1 mg Documented by: Hydralazine HCl (Hydralazine 20 Mg/Ml Vial) 10 mg IV Q4H PRN PRN PRN Reason: SBP > 160 Lactated Ringer's () 1,000 mls @ 100 mls/hr IV .Q10H [facility] Last Admin: 07/17/20 05:30 Dose: 100 mls/hr Documented by: Losartan Potassium (Losartan Potassium 100 Mg Tablet) 100 mg PO DAILY [facility] Last Admin: 07/17/20 08:36 Dose: 100 mg Documented by: Ondansetron HCl (Ondansetron 4 Mg/2 Ml Vial) 4 mg IV Q4H PRN PRN PRN Reason: Nausea Sodium Chloride (0.9% Saline Lock 10 Ml Syringe) 10 - 40 ml IV UD PRN PRN Reason: SALINE FLUSH Assessment/Plan This patient was seen in conjunction with DRILL DOCTOR, Tegan. I have independently interviewed and examined the patient and reviewed pertinent history, examination findings, laboratory and plan of management. I have reviewed the note and agree with the documented findings with the few additional points. In brief, patient was admitted in ICU for second-degree AV block, type II alternating with type I. Metoprolol was held. Heart block improved to first- degree AVB with sometimes alternating with Wenckebach, Mobitz type I. Patient denies history of heart rate ranging problem in the past. Advised to hold metoprolol and follow-up with primary warrant clerk Dr. Keith [facility]. Seen by warrant clerk Dr. Nash and discussed with him in the ICU. Patient discharged on Holter monitor for 48 hours, approved by Dr. Nash. Admitted after right hemithyroidectomy with laryngeal nerve monitoring for suspicious right thyroid nodule. Small serosanguineous collection PUMA drain. PUMA drain was removed. Patient has normal voice. Other comorbidities as mentioned above including coronary artery status post CABG and stents Discharge instructions discharge medications reviewed. Patient discharged by Dr. Montemayor I have discussed my assessment with DRILL DOCTOR, Tegan and orders have been reviewed. Inpatient E&M: 31494 Subs Hosp L2
--- NOTE | 2020-07-17 14:08 | PN.CARD_ITS ---
Subjectve: The patient is awake and alert. He has been up and out of bed. He states he feels good. He has noted no concerning chest discomfort, difficulty breathing, or palpitations. There has been no report of near syncope or syncope. He states he wants to be discharged home for continued outpatient follow-up. Objective: Vital Signs Temp Pulse Resp BP Pulse Ox 97.8 F 73 16 108/63 96 07/17/20 12:00 07/17/20 12:00 07/17/20 12:00 07/17/20 12:00 07/17/20 12:00 Oxygen Flow Rate (L/min) 2 Oxygen Delivery Method Room Air Weight: 238 lb 8.642 oz Body Mass Index (BMI) 34.4 Intake and Output for Last 24 Hours 07/15/20 07/16/20 07/17/20 23:59 23:59 23:59 Intake Total 1583.33 / 1703.33 1623.33 / 1623.33 Output Total 500 / 960 1167 / 1167 Balance 1083.33 / 743.33 456.33 / 456.33 General: Awake, Alert, Oriented x 3, Cooperative, No Acute Distress, Obese HEENT: - - Status post thyroid surgery with surgical dressing Neck: Supple, Good ROM Lungs: Clear to auscultation Cardiovascular: Regular Rhythm, Normal S1, Normal S2 Abdomen: Bowel Sounds Present, Soft Extremities: No edema Neurological: No Focal Motor or Sensory Deficit Psych/Mental Status: Appropriate 07/16/20 19:50: Magnesium 2.1, Troponin I < 0.015 07/16/20 23:20: Troponin I < 0.015 07/17/20 02:15: Hemoglobin A1c 8.6 H 07/17/20 02:15: Troponin I < 0.015 07/17/20 08:50: WBC 10.7, RBC 5.04, Hgb 13.8, Hct 42.3, MCV 83.9, MCH 27.4, MCHC 32.6, Plt Count 193, MPV 10.1, Immature Gran % (Auto) 0.400, Neut % (Auto) 87.8 H, Lymph % (Auto) 7.2 L, [place] % (Auto) 4.5, Eos % (Auto) 0.0, Baso % (Auto) 0.1, Absolute Neuts (auto) 9.4 H, Nucleated RBC % 0 07/17/20 08:50: Sodium 135 L, Potassium 4.1, Chloride 101, Carbon Dioxide 28.0, Anion Gap 6, BUN 21 H, Creatinine 1.05, Est GFR (MDRD) Af Amer 91, Est GFR (MDRD) Non-Af 76, BUN/Creatinine Ratio 20.0, Glucose 263 H, Calcium 9.2, Phosphorus 3.3, Magnesium 2.1 Rhythm: Sinus rhythm; sinus rhythm with second-degree AV block Mobitz 1; sinus rhythm with 2-1 AV block EKG: Sinus rhythm with secondary AV block Mobitz 1 with inferior TX pattern of indeterminate age cannot be excluded ECHO: Interpretation Summary The study was technically difficult. Segmental dysfunction with preserved ejection fraction (see wall motion). The estimated ejection fraction is 55 %. Mild concentric left ventricular hypertrophy. The left atrium is mildly enlarged. Mild diffuse mitral valve thickening. Trivial mitral valve insufficiency. Trivial tricuspid valve insufficiency. Aortic sclerosis, no stenosis. Calcified aortic root. Right ventricular systolic pressure estimated to be 19 mmHg. Unable to assess diastolic dysfunction. Medical Necessity - Tobacco Use Smoking Status: Never smoker Tobacco Use: Non-smoker Assessment/Plan 1. AV block The patient has experienced post surgery in the recovery room findings compatible with underlying AV block initially with a sinus rhythm with a 2-1 AV block and subsequently, status post receiving IV atropine, a sinus rhythm with a second-degree AV block Mobitz 1. The patient has no history of cardiac conduction disorder that he is aware of. He does not recall undergoing any type of cardiac rhythm evaluation in the past. The patient does have an extensive history of underlying CAD requiring multiple PCI procedures and subsequently CABG. He also has findings of an underlying ischemic mediated cardiomyopathy but has not had overt CHF or pulmonary edema. The patient has been on medical therapy in the past with beta-mike therapy with metoprolol XL at 25 mg p.o. daily. At the moment the patient appears to be symptomatically and hemodynamically stable. The patient has been monitored in the ICU. His beta-blockers have been held. His cardiac rhythm has demonstrated sinus rhythm with episodes of sinus rhythm with secondary AV block Mobitz 1 and previous episodes of sinus rhythm with 2 1 AV block. He is undergone further evaluation with a transthoracic echocardiogram. The results are as noted. 2. CAD status post PCI status post CABG As noted above the patient has an extensive history of coronary artery disease requiring multiple PCI procedures and subsequently a CABG. He has undergone recent presurgical evaluation with a pharmacologic stress nuclear imaging study with the findings as noted above. He did not require additional evaluation with diagnostic cardiac catheterization. At the moment he appears without any acute coronary syndrome symptoms. His cardiac enzymes have been reported as negative. He will continue medical therapy with the exception of his rate limiting therapy at this time. 3. Ischemic mediated cardiomyopathy He does have a history of an ischemic mediated cardiomyopathy. He does not have any obvious symptoms of overt CHF or pulmonary edema. He has not required primary ICD placement. At the present time he will continue medical therapy with the exception of his rate limiting agents. He has undergone evaluation with a transthoracic echocardiogram. The results are as noted. 4. Hyperlipidemia He will continue medical management as deemed appropriate. 5. Hypertension He can continue medical therapy with the avoidance of rate limiting medication at this time. 6. Status post thyroid surgery He will continue evaluation care per Dr. Montemayor of ENT. Comment: Overall, at the present time, the patient does appear to be symptomatically and hemodynamically stable. He is demonstrated sinus rhythm with intermittent episodes of sinus rhythm with secondary AV block Mobitz 1 and previous episodes of sinus rhythm with 2-1 AV block. At the present time he is holding his beta-mike. He has undergone additional evaluation with a transthoracic echocardiogram with results as noted. The patient requests discharge home for continued outpatient follow-up. Thus, he will be asked to continue to hold his beta-mike secondary to the findings of his underlying conduction system. He will be asked to continue as an outpatient with a Holter monitor to further evaluate his cardiac rate and rhythm without his beta-mike which can be forwarded to his primary drying tunnel operator. He will be asked to follow-up with his primary drying tunnel operator Dr. Mahesh Reece at [facility] in [place], [place] for continued cardiovascular evaluation and care. In the interim if he has any concerning symptoms, etc., he should return to the nearest hospital for further evaluation. The patient's case was discussed and reviewed with the patient and Dr. Vance. This note was generated using a voice recognition system and there may be incorrect words, spelling or punctuation that were not noted when reviewing the office note prior to saving.
== END 2020-07-17 15:05 | disposition home or self-care (01) ==
LOC: SDC 17:04 → MS3 17:04 → ICU 18:41 → MS3 07-19 08:52
PROVIDERS: Anesthesiology; Family Medicine; Internal Medicine; Admitting Provider Otolaryngology; PCP Student in an Organized Health Care Education/Training Program; Referring Provider Otolaryngology; Visit Provider Otolaryngology
PROC: (CPT 60220; principal; 2020-07-16 12:55)
DX: D34 Benign neoplasm of thyroid gland (principal); E04.2 Nontoxic multinodular goiter; I25.10 Atherosclerotic heart disease of native coronary artery without angina pectoris; E78.5 Hyperlipidemia, unspecified; I10 Essential (primary) hypertension; I44.1 Atrioventricular block, second degree; Z79.899 Other long term (current) drug therapy; Z79.82 Long term (current) use of aspirin; Z79.02 Long term (current) use of antithrombotics/antiplatelets; Z95.5 Presence of coronary angioplasty implant and graft; Z95.1 Presence of aortocoronary bypass graft; I25.5 Ischemic cardiomyopathy; E16.2 Hypoglycemia, unspecified; I25.2 Old myocardial infarction
CPT/HCPCS: 00320; 60220; 36415; 80048; 82962; 83036; 83735; 84100; 84443; 84484; 85025; 85027; 87426; 88305; 88307; 88311; 88331; 88332; 93005; 93306; 96360; 96361; 99218; C9803; J7120; G0378; G0379; J2405

== ENCOUNTER → 2020-07-17 11:31 | Outpatient (CLI) | payer BC, SELFPAY ==
[2020-07-16 18:56] VITALS: BMI 34.4
== END ==
PROVIDERS: PCP Student in an Organized Health Care Education/Training Program; Visit Provider Internal Medicine
DX: I44.1 Atrioventricular block, second degree (principal)
CPT/HCPCS: 93225; 93226

== ENCOUNTER → 2021-01-20 08:59 | Outpatient (CLI) | payer BC, SELFPAY ==
[2021-01-20 11:16] LABS: Thyroid Stim Hormone (TSH) 5.61 uIU/mL (0.358-3.74)
== END ==
PROVIDERS: PCP Student in an Organized Health Care Education/Training Program; Referring Provider Otolaryngology; Visit Provider Otolaryngology
DX: E04.1 Nontoxic single thyroid nodule (principal)
CPT/HCPCS: 36415; 84443

== ENCOUNTER 2022-12-28 11:36 | Day surgery (SDC) | payer BC, SELFPAY ==
[2022-12-28] VITALS (7 sets, daily range): BP systolic 120–155; BP diastolic 73–91; PULSE 51–108; RESP 16; TEMP 36.1–36.7; O2SAT 56–97; BMI 38.2
[2022-12-28] MEDS: Lactated Ringers 1,000 ML 15 ML IV (12:10)
[2022-12-28 12:31] LABS: Bedside Glucose 95 mg/dL (74-106)
[2022-12-28] MEDS: Cefazolin 2 GM in 0.9% Normal Saline (100mL Bag) 100 ML IV (13:56)
[2022-12-28] MEDS: Epinephrine (1 mg/ml) 1 MG/ML VIAL (14:14)
[2022-12-28] MEDS: Bupivacaine Mpf 0.5% 30 ML VIAL (14:30)
[2022-12-28] MEDS: Oxycodone/Apap 5/325 Tablet PO (16:22)
--- NOTE | 2022-12-28 17:37 | PCM.OPRPT ---
Report of Operation Date of Procedure: 12/28/22 Description of Surgical Findings:: Preoperative diagnosis: 1. Right knee medial meniscus tear 2. Medial and patellofemoral compartment chondromalacia Postoperative diagnosis: 1. Degenerative right knee medial meniscus horizontal tear 2. Grade 4 trochlear chondromalacia 3. Grade 3 medial femoral condyle chondromalacia Procedure: 1. Right knee diagnostic and operative arthroscopy with partial medial meniscectomy 2. Right knee arthroscopic chondroplasty of the medial femoral condyle and trochlea Surgeon: Mendez Kim DO Anesthesia: General LMA Night Club Manager: Fernandez Thacker CRNA IV fluids: 1 L crystalloid Estimated blood loss: 20 cc Urine output: None recorded Specimen: None Complications: None apparent Packing/drains: None Intraoperative findings: Degenerative horizontal medial meniscus tearing, grade III chondromalacia medial femoral condyle, grade IV chondromalacia trochlea Preoperative indications: This is a 67-year-old male with atraumatic right knee medial pain. He had mild osteoarthritic changes on x-ray. We attempted to treat this nonoperatively with physical therapy, Tylenol, and intra-articular corticosteroid injection. He noted brief relief with corticosteroid injection. MRI was obtained and demonstrated chondromalacia of the medial compartment and patellofemoral compartment as well as a medial meniscus tear. I recommend surgical intervention in the form of right knee diagnostic and operative arthroscopy with partial medial meniscectomy and chondroplasty. The risks, benefits, alternatives to procedure reviewed with the patient at length and he agreed to proceed. Risk included but were not limited to bleeding, infection, loss of life or limb, need for additional surgery, persistent pain, osteoarthritis progression, nonhealing wounds, neurovascular injury, DVT or PE, risk of anesthesia. Patient expressed understanding of these risks and wished to proceed with surgery. Description of procedure: Patient identified in preoperative holding area by name, medical record number, and date of . The operative extremities marked. All questions answered patient satisfaction. At time of his procedure, patient brought the operative suite and positioned supine a sterile operating table. General anesthesia induced and LMA plus placed. A well-padded pneumatic tourniquet was applied to the right upper thigh. The right lower extremity was placed in arthroscopic leg rey. A well leg rey was placed under the patient's left thigh. The foot of the bed was dropped 90 degrees. We prepped and draped the right lower extremity in normal, sterile orthopedic fashion. 2 g Ancef was administered IV prior to the incision by anesthesia staff. We performed timeout with all parties in attendance in agreement with the side, site, and operation be performed. No concerns voiced elected proceed with surgery. First I exsanguinated the right lower extremity with Esmarch bandage. Tourniquet was inflated to 250 mmHg which made up for approximately 20 minutes. Esmarch was removed. A standard anterolateral portal was established with 11 blade scalpel. Blunt tipped trocar was used to enter the right knee joint with the knee in full extension entering the patellofemoral compartment. Trocar was exchanged for the arthroscope. Diagnostic arthroscopy was commenced. Grade IV chondromalacia was encountered of the trochlea. Medial lateral gutters were unremarkable. Medial compartment was entered with valgus stress. Degenerative meniscal tearing was encountered. A standard anterior medial portal was established with assistance of a spinal needle and subsequent 11 blade scalpel. Probing of the medial meniscus demonstrated horizontal tearing. A combination of meniscal baskets and arthroscopic shaver was used to perform a partial medial meniscectomy. Approximately the inner third of the medial meniscus was debrided from the mid body to the posterior horn. A stable meniscal rim was established. Abrasion chondroplasty was performed of the medial femoral condyle due to unstable chondral edges. This achieved stable chondral rim. I then turned my attention to the patellofemoral compartment. Unstable chondral edges were debrided and abrasion chondroplasty performed. Lateral compartment was entered with [id number] stress. Lateral compartment appeared pristine and with a stable meniscus. The knee was then copiously irrigated with normal saline solution. Arthroscopic instruments were removed. The knee was anesthetized with 30 cc total of 0.5% plain bupivacaine. Sterile compression dressing was applied after the portal sites were closed in standard fashion with a [id number] 4-0 nylon suture. Tourniquet was deflated. Patient was then awoken and safely explained in the operative suite. He was transferred to his gurney and subsequently PACU in stable condition. He tolerated procedure well without complication. Postoperative plan: Patient will be weightbearing as tolerated to the operative extremity. Range of motion as tolerated. Crutches as needed. Follow-up in 2 weeks for suture removal. Plan initiation of physical therapy in 2 weeks. Aspirin and Plavix to restart tomorrow. Prescription for oxycodone provided. Tylenol encouraged. Ice to the operative site.
== END 2022-12-28 17:10 | disposition home or self-care (01) ==
LOC: SDC 11:36 → AC 11:39
PROVIDERS: PCP Student in an Organized Health Care Education/Training Program; Referring Provider Student in an Organized Health Care Education/Training Program; Visit Provider Student in an Organized Health Care Education/Training Program
PROC: (CPT 29870; principal; 2022-12-28 12:50)
DX: S83.241A Other tear of medial meniscus, current injury, right knee, initial encounter (principal); E11.9 Type 2 diabetes mellitus without complications; M22.41 Chondromalacia patellae, right knee; M19.90 Unspecified osteoarthritis, unspecified site; I25.10 Atherosclerotic heart disease of native coronary artery without angina pectoris; I25.2 Old myocardial infarction; E78.00 Pure hypercholesterolemia, unspecified; Z79.82 Long term (current) use of aspirin; Z79.899 Other long term (current) drug therapy; Z79.84 Long term (current) use of oral hypoglycemic drugs; Z87.442 Personal history of urinary calculi; X58.XXXA Exposure to other specified factors, initial encounter
CPT/HCPCS: 29881; 01400; 82962; J7120; J2405